=== PATIENT | female | born 2000 | race African-American/Black ===

== ENCOUNTER 2023-11-13 13:06 | Emergency (ER) | payer OTHER, SELFPAY ==
[2023-11-13 13:18] VITALS: BP 122/87; PULSE 106; RESP 20; TEMP 37.4; O2SAT 95; BMI 46.1
--- NOTE | 2023-11-13 13:32 | ED_ITS ---
HPI - URI/Sore Throat General Chief Complaint: Upper Respiratory Infection Stated Complaint: SORE THROAT/ EARACHE Time Seen by Provider: 11/13/23 13:20 Source: patient Limitations: no limitations History of Present Illness HPI Narrative: Patient is a 23-year-old female presents to the emergency department with a 5- day history of sore throat, cough, ear pain, sputum production. She denies fevers, vomiting, diarrhea. Her 6-month-old is being reevaluated for upper respiratory symptoms after a positive diagnosis of rhinovirus over the weekend.She is not concerned for . No medications taken prior to arrival. Related Data Home Medications Medication Instructions Recorded Confirmed albuterol 90 mcg/actuation aerosol mcg inhalation 11/13/23 inhaler sertraline 50 mg tablet (Zoloft) 50 mg PO DAILY 11/13/23 11/13/23 Previous Rx's Medication Instructions Recorded [id number] 10 ml PO Q6H PRN cold symptoms 11/13/23 2 mg-30 mg-10 mg/5 mL oral syrup #200 mL (Bromfed DM) Allergies Allergy/AdvReac Type Severity Reaction Status Date / Time No Known Drug Allergies Allergy Verified 11/13/23 13:21 Review of Systems ROS Constitutional Denies: fever or chills Ears, nose, mouth, and throat Reports: throat pain, ear pain and nasal congestion Cardiovascular Denies: chest pain Respiratory Reports: cough; Denies: shortness of breath Gastrointestinal Denies: nausea or vomiting Musculoskeletal Denies: back pain Integumentary/Breast Denies: rash Neurological Denies: headache PFSH PFSH Social History Smoking status: Former smoker Exam Narrative Exam Narrative: Gen.: Awake, alert, in no distress Head: Normocephalic, atraumatic ENT: Moist mucous membranes, Bilateral TMs are fluid-filled, minimal erythema with no significant injection or drainage. Bilateral, symmetric tonsillar edema with no exudate. Uvula midline. No trismus or drooling. Clear speech. Airway widely open and patent. Respiratory: No respiratory distress, lungs clear bilaterally Cardio: Regular rate and rhythm Extremities: Moves extremities equally Psych: Normal mood and affect Neuro: No focal neuro deficit Skin: Warm, dry, intact Constitutional Vital Signs, click to edit/add: Last Vital Signs Temp 99.3 F 11/13/23 13:18 Pulse 106 H 11/13/23 13:18 Resp 20 11/13/23 13:18 BP 122/87 11/13/23 13:18 Pulse Ox 95 11/13/23 13:18 O2 Del Method Room Air 11/13/23 13:18 Course Vital Signs Vital signs: Vital Signs Temperature 99.3 F 11/13/23 13:18 Pulse Rate 106 H 11/13/23 13:18 Respiratory Rate 20 11/13/23 13:18 Blood Pressure 122/87 11/13/23 13:18 Pulse Oximetry 95 11/13/23 13:18 Oxygen Delivery Method Room Air 11/13/23 13:18 Temperature 99.3 F 11/13/23 13:18 Pulse Rate 106 H 11/13/23 13:18 Respiratory Rate 20 11/13/23 13:18 Blood Pressure 122/87 11/13/23 13:18 Pulse Oximetry 95 11/13/23 13:18 Oxygen Delivery Method Room Air 11/13/23 13:18 MDM - URI/Sore Throat MDM Narrative Medical decision making narrative: Is negative for strep, COVID and influenza. Her daughter is positive for rhinovirus which is likely the cause of the patient's viral upper respiratory infection. She was given Decadron in the ER for swollen tonsils and sore throat. She will be discharged home with Danya Carmen. Follow-up with PCP and return to the ER if symptoms change or worsen Medical Records Attestation: I reviewed the patient's medical records. Lab Data Attestation: I reviewed the patient's lab results. Labs: Lab Results 11/13/23 Range/Units 13:35 Influenza Type A Ag Negative Influenza Type B Ag Negative SARS-CoV-2 Ag (CV2AG) Negative (NEGATIVE) Streptococcus Screen Negative Discharge Plan Discharge Chief Complaint: Upper Respiratory Infection Clinical Impression: Upper respiratory infection Patient Disposition: Home, Self-Care Time of Disposition Decision: 14:10 Mode of Transportation: Private Vehicle Prescriptions / Home Meds: New [id number] [Bromfed DM] 2-30-10 mg/5 mL syrup 10 ml PO Q6H PRN (Reason: cold symptoms) Qty: 200 0RF No Action sertraline [Zoloft] 50 mg tablet 50 mg PO DAILY albuterol 90 mcg/actuation aerosol inhalation Instructions: Upper Respiratory Infection (ED) Stand Alone Forms: Portal Instructions Discharge Date/Time: 11/13/23 14:24
[2023-11-13] MEDS: DEXAMETHASONE SOD PHOS 10 MG/ML VIAL PO (13:52)
[2023-11-13 13:59] LABS: Influenza Virus A Antigen Negative; Influenza Virus B Antigen Negative; Internal Control Within Normal Limits; Strep A Antigen Screen Negative
[2023-11-13 14:00] LABS: SARS-CoV-2 Ag NEGATIVE (NEGATIVE)
== END 2023-11-13 14:24 | disposition home or self-care (01) ==
PROVIDERS: Physician Assistant; Emergency Provider Emergency Medicine
DX: J06.9 Acute upper respiratory infection, unspecified (principal); Z20.822 Contact with and (suspected) exposure to COVID-19; Z87.891 Personal history of nicotine dependence; Z79.899 Other long term (current) drug therapy
CPT/HCPCS: 87070; 87804; 87811; 87880; 99285; J1100